=== PATIENT | male | born 1960 | race Caucasian/White ===

== ENCOUNTER 2016-12-05 17:03 | Emergency (ER) | payer OTHER ==
[2016-12-05] MEDS ORDERED: NITROGLYCERIN SL 0.4 MG TABLET SL STA (18:11)
[2016-12-05] MEDS ORDERED: ASPIRIN CHEW 81 MG TABLET PO STA (18:12)
[2016-12-05] MEDS ORDERED: ASPIRIN CHEW 81 MG TABLET ONE (18:13)
[2016-12-05] MEDS ORDERED: NITROGLYCERIN SL 0.4 MG TABLET SL ONE (18:13)
[2016-12-05] MEDS ORDERED: NITROGLYCERIN 2% PASTE TOP STA (19:12)
[2016-12-05] MEDS ORDERED: NITROGLYCERIN 2% PASTE TOP ONE (19:16)
[2016-12-05] MEDS ORDERED: METOPROLOL TARTRATE 50 MG TABLET PO STA (19:34)
[2016-12-05] MEDS ORDERED: METOPROLOL TARTRATE 50 MG TABLET ONE (19:45)
== END 2016-12-05 20:30 | disposition home or self-care (01) ==
DX: I20.0 Unstable angina (principal); I10 Essential (primary) hypertension
CPT/HCPCS: 36415; 71010; 80053; 83690; 83735; 83880; 84484; 85025; 93005; 93010; 99284; A9270

== ENCOUNTER 2017-01-12 | Outpatient (CLI) | payer OTHER | END 2017-01-12 20:04 | disposition EMS.NT | DX: T17.928A Food in respiratory tract, part unspecified causing other injury, initial encounter (principal) ==

== ENCOUNTER 2017-12-04 16:03 | Emergency (ER) | payer OTHER ==
[2017-12-04 17:49] LABS: BILIRUBIN,URINE NEGATIVE (NEGATIVE); GLUCOSE, URINE (UA) NEGATIVE (NEGATIVE); KETONES,URINE (UA) NEGATIVE (NEGATIVE); LEUKOCYTE ESTERASE, URINE LARGE (NEGATIVE); NITRITE,URINE NEGATIVE (NEGATIVE); OCCULT BLOOD,URINE TRACE-INTA (NEGATIVE); PROTEIN,URINE NEGATIVE (NEGATIVE); UROBILINOGEN,URINE 0.2 (NORMAL) E.U./dL (NORMAL)
[2017-12-04 17:51] LABS: CLARITY,URINE SL. CLOUDY (CLEAR)
[2017-12-04] MEDS ORDERED: BENZONATATE 100 MG CAPSULE PO STA (17:55)
[2017-12-04 17:56] LABS: BASOPHILS # (AUTO) 0.1 10^3/uL (0.0-0.1); BASOPHILS % (AUTO) 0.7 %; EOSINOPHILS # (AUTO) 0.2 10^3/uL (0.0-0.7); EOSINOPHILS % (AUTO) 2.2 %; HGB - HEMOGLOBIN 13.4 g/dL (14.0-18.0); LYMPHOCYTES # (AUTO) 1.7 10^3/uL (1.5-3.5); LYMPHOCYTES % (AUTO) 20.3 %; MEAN CORPUSCULAR HEMOGLOBIN 29.8 pg (27.0-31.0); MEAN CORPUSCULAR HGB CONC 33.4 g/dL (32.0-36.0); MEAN CORPUSCULAR VOLUME 89.2 fL (80.0-94.0); MEAN PLATELET VOLUME 7.4 fL (7.4-11.4); MONOCYTES # (AUTO) 1.1 10^3/uL (0.0-1.0); MONOCYTES % (AUTO) 12.6 %; NEUTROPHILS # (AUTO) 5.5 10^3/uL (1.5-6.6); NEUTROPHILS % (AUTO) 64.2 %; PLT - PLATELET COUNT 222 10^3/uL (130-450); RED BLOOD COUNT 4.49 10^6/uL (4.70-6.10); RED CELL DISTRIBUTION WIDTH 14.1 % (12.0-15.0); WHITE BLOOD COUNT 8.5 x10^3/uL (4.8-10.8)
[2017-12-04 17:57] LABS: ALBUMIN 4.3 g/dL (3.2-5.5); ALBUMIN/GLOBULIN RATIO 1.2 (1.0-2.2); BILIRUBIN,TOTAL 0.9 mg/dL (0.2-1.0); TOTAL PROTEIN 7.8 g/dL (6.7-8.2)
[2017-12-04 17:58] LABS: BACTERIA,URINE Few /HPF (None Seen); RBC,URINE 0-5 /HPF (0-5); SQUAMOUS EPITHELIAL CELL,UR FEW Squamous (<= Few)
--- NOTE | 2017-12-04 18:01 | ED Physician Documentation ---
History of Present Illness - Stated complaint Stated Complaint: MALE - Chief complaint Chief Complaint: UTI - History obtained from History obtained from: Patient, Family - History of Present Illness Timing: How many days ago (several) Pain level max: 4 Pain level now: 3 - Additonal information Additional information: Patient is a 57-year-old male who presents to the emergency department complaining of burning and frequency of urination for the past several days. Has never had a UTI before. No fevers. Occasionally has low back pain. No vomiting. No other abdominal pain. Also states that he has had a cough and nasal congestion for the past several days. Has not been taking anything for this. Went to see his doctor today who sent him here for evaluation. Review of Systems Constitutional: denies: Fever, Chills Cardiac: denies: Chest pain / pressure Respiratory: denies: Cough GI: denies: Abdominal Pain, Nausea, Vomiting, Diarrhea : reports: Dysuria, Frequency, Hesitancy Skin: denies: Rash Musculoskeletal: denies: Neck pain, Back pain Neurologic: denies: Headache PD PAST MEDICAL HISTORY - Past Medical History Cardiovascular: Hypertension, High cholesterol, Coronary artery disease, [place], Other Respiratory: Sleep apnea : Other Other Past Medical History: cystitis, bladder neck obstruction, urethral stricture - Past Surgical History Past Surgical History: No Cardiovascular: Coronary stent - Present Medications Home Medications: Ambulatory Orders Medication Instructions Recorded Confirmed Another Blood Pressure Med 12/05/16 Atorvastatin [Lipitor] 10 mg PO DAILY #15 tablet 12/05/16 12/04/17 Metoprolol Tartrate 25 mg PO BID #30 tablet 12/05/16 12/04/17 Nitroglycerin 0.4 mg SL ONCE PRN #1 bottle 12/05/16 12/04/17 Telmisartan/Hydrochlorothiazid 1 tab DAILY 12/05/16 12/04/17 [Micardis Hct 80-12.5 mg Tablet] Benzonatate [Tessalon Perle] 100 - 200 mg PO TID PRN #30 capsule 12/04/17 Clopidogrel [Plavix] DAILY 12/04/17 Doxazosin [Cardura] 2 mg DAILY 12/04/17 12/04/17 NIFEdipine [Procardia Xl] DAILY 12/04/17 Nitrofurantoin Monohyd/M-Cryst 100 mg PO BID #14 capsule 12/04/17 [Macrobid 100 mg Capsule] Omeprazole [PriLOSEC] DAILY 12/04/17 - Allergies Allergies/Adverse Reactions: Allergies Allergy/AdvReac Type Severity Reaction Status Date / Time No Known Drug Allergies Allergy Verified 12/05/16 17:14 - Social History Does the pt smoke?: No Smoking Status: Never smoker Does the pt drink ETOH?: No Does the pt have substance abuse?: No - Immunizations Immunizations are current?: No - POLST Patient has POLST: No PD ED PE NORMAL - Vitals Vital signs reviewed: Yes - General General: Alert and oriented X 3, No acute distress, Well developed/nourished - HEENT HEENT: PERRL, Moist mucous membranes - Neck Neck: Supple, no meningeal sign - Cardiac Cardiac: RRR, No murmur - Respiratory Respiratory: Clear bilaterally - Abdomen Abdomen: Normal bowel sounds, Soft, Non tender, Non distended - Back Back: No CVA TTP, No spinal TTP - Derm Derm: Warm and dry - Neuro Neuro: Alert and oriented X 3 - Psych Psych: Normal mood, Normal affect Results - Vitals Vitals: Vital Signs - 24 hr 12/04/17 12/04/17 16:58 18:07 Temperature 36.4 C L 35.9 C L Heart Rate 85 77 Respiratory 20 18 Rate Blood Pressure 126/65 130/76 O2 Saturation 96 95 Oxygen O2 Source Room air - Labs Labs: Laboratory Tests 12/04/17 12/04/17 12/04/17 17:35 17:35 17:39 WBC 8.5 RBC 4.49 L Hgb 13.4 L Hct 40.1 L MCV 89.2 MCH 29.8 MCHC 33.4 RDW 14.1 Plt Count 222 MPV 7.4 Neut # 5.5 Lymph # 1.7 [place] # 1.1 H Eos # 0.2 Baso # 0.1 Absolute Nucleated RBC 0.00 Nucleated RBC % 0.0 Sodium 134 L Potassium 3.3 L Chloride 99 L Carbon Dioxide 25 Anion Gap 10.0 BUN 17 Creatinine 1.0 Estimated GFR (MDRD) 77 L Glucose 93 Calcium 9.0 Total Bilirubin 0.9 AST 22 ALT 29 Alkaline Phosphatase 72 Total Protein 7.8 Albumin 4.3 Globulin 3.5 Albumin/Globulin Ratio 1.2 Lipase 23 Urine Color YELLOW Urine Clarity SL. CLOUDY Urine pH 6.0 Ur Specific Leslie <=1.005 Urine Protein NEGATIVE Urine Glucose (UA) NEGATIVE Urine Ketones NEGATIVE Urine Occult Blood TRACE-INTA Urine Nitrite NEGATIVE Urine Bilirubin NEGATIVE Urine Urobilinogen 0.2 (NORMAL) Ur Leukocyte Esterase LARGE H Urine RBC 0-5 Urine WBC >25 H Ur Squamous Epith Cells FEW Squamous Urine Bacteria Few Ur Microscopic Review INDICATED Urine Culture Comments INDICATED PD MEDICAL DECISION MAKING - ED course Complexity details: reviewed results, re-evaluated patient, considered differential, d/w patient, d/w family ED course: Patient is a 57-year-old male who has a UTI. Appears to be uncomplicated. No pain with bowel movement. No history of prostate issues. Will place on antibiotics and follow-up with his doctor. Patient declines a rectal exam here. He is very well-appearing, nontoxic. Afebrile. Patient counseled regarding signs and symptoms for which I believe and urgent re-evaluation would be necessary. Patient with good understanding of and agreement to plan and is comfortable going home at this time This document was made in part using voice recognition software. While efforts are made to proofread this document, sound alike and grammatical errors may occur. Departure - Departure Disposition: 01 Home, Self Care Clinical Impression: Viral URI UTI (urinary tract infection) Qualifiers: Urinary tract infection type: acute cystitis Hematuria presence: without hematuria Qualified Code(s): N30.00 - Acute cystitis without hematuria Condition: Good Instructions: ED UTI Cystitis Male Follow-Up: YAAKOV STERLING PA-C [Primary Care Provider] - Within 1 week Prescriptions: Benzonatate [Tessalon Perle] 100 - 200 mg PO TID PRN #30 capsule PRN Reason: Cough Nitrofurantoin Monohyd/M-Cryst [Macrobid 100 mg Capsule] 100 mg PO BID #14 capsule Comments: Take all antibiotics until gone. Return if you worsen. Discharge Date/Time: 12/04/17 18:18
[2017-12-04] MEDS ORDERED: NITROFURANTOIN MACRO 100 MG CAPSULE PO STA (18:02)
[2017-12-04 18:11] VITALS: BP 130/76
== END 2017-12-04 18:18 | disposition home or self-care (01) ==
LOC: ED 16:03
DX: N30.00 Acute cystitis without hematuria (principal); J06.9 Acute upper respiratory infection, unspecified; B97.89 Other viral agents as the cause of diseases classified elsewhere; I25.10 Atherosclerotic heart disease of native coronary artery without angina pectoris; I25.2 Old myocardial infarction; I10 Essential (primary) hypertension; Z95.5 Presence of coronary angioplasty implant and graft
CPT/HCPCS: 36415; 80053; 81001; 83690; 85025; 87086; 99283; A9270; 81003; 87077